=== PATIENT | male | born 1945 | race Caucasian/White ===

== ENCOUNTER 2019-11-24 08:19 | Emergency (ER) | payer OTHER ==
--- NOTE | 2019-11-24 08:32 | NUR ---
Patient decided to leave triage and not continue with care.
== END 2019-11-24 08:32 | disposition home or self-care (01) ==
LOC: SED 08:19
DX: M79.672 Pain in left foot (principal); M79.671 Pain in right foot; Z53.21 Procedure and treatment not carried out due to patient leaving prior to being seen by health care provider

== ENCOUNTER 2019-12-02 08:59 | Emergency (ER) | payer OTHER ==
[~2019-12-02] VITALS: Ht 167.6 cm; Wt 77.1 kg
[2019-12-02 09:03] VITALS: BP_SYST 135
--- NOTE | 2019-12-02 09:12 | NUR ---
Pt is taken to room 7, gown given.
--- NOTE | 2019-12-02 09:18 | NUR ---
Report given to Lisa.
--- NOTE | 2019-12-02 09:19 | NUR ---
Patient arrived in the ED c/o constipation that started a week ago. Patient stated he tried everything, laxatives, prune juice, fibers. Patient denied any chest pain or shortness of breath. Denied any fevers, chills, nausea, or vomiting. Patient is alert and oriented x4, respirations even and unlabored, speaking in full sentences, ambulating with a steady gait. VSS, pain level 5/10. Informed of approximate wait time. Instructed to notify ED staff for any changes in condition or worsening of symptoms. Patient verbalized understanding.
--- NOTE | 2019-12-02 09:20 | NUR ---
ER Dr. Wise at bedside examining patient.
[2019-12-02] MEDS ORDERED: NACL 0.9% 1,000 ML IV ONE (09:23)
[2019-12-02] MEDS ORDERED: ONDANSETRON HCL 4 MG/2 ML VIAL IVP ONE (09:30)
--- NOTE | 2019-12-02 09:32 | NUR ---
Patient ambulated to the bathroom with a steady gait. Urine specimen collected and dipped.
--- NOTE | 2019-12-02 09:36 | NUR ---
# 18 gauge angiocath placed to LAC. Use of asceptic technique. Opsite placed over site. Blood return noted. Blood for lab drawn from site. Flushed with 10 cc of normal saline. No evidence of infiltration noted. Patient tolerated well.
--- NOTE | 2019-12-02 09:36 | NUR ---
Administered Zofran IVP as ordered by Dr. Wise. Patient tolerated the medication well. See eMAR for details.
--- NOTE | 2019-12-02 09:45 | NUR ---
Patient is taken to X-ray, in stable condition.
--- NOTE | 2019-12-02 09:56 | NUR ---
Patient is back from X-ray, in stable condition.
[2019-12-02 10:01] LABS: BASOPHILS # (AUTO) 0.1 K/uL (0.0-0.2); BASOPHILS % (AUTO) 0.8 % (0.0-2.0); BILIRUBIN,URINE NEGATIVE (NEGATIVE); BLOOD, URINE NEGATIVE (NEGATIVE); CLARITY/URINE CLEAR (CLEAR); COLOR,URINE YELLOW (YELLOW); EOSINOPHILS # (AUTO) 0.1 K/uL (0.0-0.4); EOSINOPHILS % (AUTO) 1.5 % (0.0-4.0); GLUCOSE,URINE NEGATIVE (NEGATIVE); HEMOGLOBIN 16.6 g/dL (14.0-18.0); KETONES,URINE TRACE (NEGATIVE); LEUKOCYTE ESTERASE ,URINE NEGATIVE (NEGATIVE); LYMPHOCYTES # (AUTO) 1.7 K/uL (1.0-5.5); LYMPHOCYTES % (AUTO) 21.2 % (20.5-51.5); MEAN CORPUSCULAR HEMOGLOBIN 28 pg (27-31); MEAN CORPUSCULAR HGB CONC 33 % (32-36); MEAN CORPUSCULAR VOLUME 87 fL (79.0-98.0); MONOCYTES # (AUTO) 0.6 K/uL (0.0-1.0); MONOCYTES % (AUTO) 7.7 % (1.7-9.3); NEUTROPHILS # (AUTO) 5.4 K/uL (1.8-7.7); NEUTROPHILS % (AUTO) 68.8 % (40.0-70.0); NITRITE, URINE NEGATIVE (NEGATIVE); PH,URINE 6.5 (5.0-8.0); PLATELET COUNT (AUTO) 277 K/uL (130-430); PROTEIN URINE NEGATIVE (NEGATIVE); RED BLOOD CELL COUNT(AUTO) 5.89 MIL/uL (4.2-6.2); RED CELL DISTRIBUTION WIDTH 16.4 % (9.0-15.0); UROBILINOGEN,URINE 0.2 (0.2-1.0); WHITE BLOOD COUNT (AUTO) 7.9 K/uL (4.8-10.8)
[2019-12-02 10:15] LABS: ANION GAP 11 (5-15); CALCIUM 9.4 mg/dL (8.4-11.0); CHLORIDE 102 mmol/L (98-107); CREATININE 1.45 mg/dL (0.55-1.30); GLUCOSE 96 mg/dL (70-99); POTASSIUM 3.6 mmol/L (3.5-5.1); SODIUM SERUM 139 mmol/L (136-145); UREA NITROGEN, BLOOD 17 mg/dL (8-21)
[2019-12-02] MEDS ORDERED: SODIUM PHOSPHATE,MONO-DIBASIC 133 ML ENEMA RC ONE (10:15)
[2019-12-02 10:20] LABS: ALANINE AMINOTRANSFERASE 34 U/L (12-78); ALBUMIN 4.3 g/dL (3.4-4.8); ASPARTATE AMINOTRANSFERASE 28 U/L (10-37); LIPASE 175 U/L (73-393); TOTAL BILIRUBIN 0.6 mg/dL (0.0-1.0)
[2019-12-02] MEDS ORDERED: MAGNESIUM CITRATE 300 ML ORAL SOLUTION PO ONE (10:30)
--- NOTE | 2019-12-02 10:31 | NUR ---
Administered Eneme CA as ordered by Dr. Wise. Patient tolerated the medication well. See eMAR for details.
--- NOTE | 2019-12-02 10:37 | NUR ---
Administered Magcitrate PO as ordered by Dr. Wise. Patient tolerated the medication well. See eMAR for details.
--- NOTE | 2019-12-02 10:40 | NUR ---
Patient given written and verbal discharge instructions and verbalizes understanding. ER MD discussed with patient the results and treatment provided. Patient in stable condition. ID arm band removed. IV catheter removed intact and dressing applied, no active bleeding. Rx of Colace given. Patient educated on pain management and to follow up with PMD. Pain Scale 0/10. Opportunity for questions provided and answered. Medication side effect fact sheet provided.
[2019-12-02 10:45] VITALS: BP_SYST 138
== END 2019-12-02 10:45 | disposition home or self-care (01) ==
LOC: SED 08:59
DX: K59.00 Constipation, unspecified (principal); I10 Essential (primary) hypertension
CPT/HCPCS: 36415; 74021; 80053; 81003; 83690; 85025; 96374; 99284; J2405; J7030

== ENCOUNTER 2019-12-04 08:37 | Emergency (ER) | payer OTHER ==
[~2019-12-04] VITALS: Ht 167.6 cm; Wt 72.6 kg
[2019-12-04 08:44] VITALS: BP_SYST 150
--- NOTE | 2019-12-04 08:49 | NUR ---
PATIENT TO WAITING ROOM, STABLE; UNCHANGED
--- NOTE | 2019-12-04 08:57 | NUR ---
PATIENT TO ER #1
--- NOTE | 2019-12-04 09:10 | NUR ---
PT CAME TO ER FOR URINARY RETENTION AND INCONTINENCE. PT IN [facility], NO S/S OF DISTRESS AT THIS TIME, VSS.
--- NOTE | 2019-12-04 09:15 | NUR ---
ER at bedside examining patient.
[2019-12-04 10:30] VITALS: BP_SYST 150
--- NOTE | 2019-12-04 10:30 | NUR ---
Patient given written and verbal discharge instructions and verbalizes understanding. ER MD discussed with patient the results and treatment provided. Patient in stable condition. ID arm band removed. Rx of MAGNESIUM CITRATE given. Patient educated on pain management and to follow up with PMD. Pain Scale 0/10. Opportunity for questions provided and answered. Medication side effect fact sheet provided.
== END 2019-12-04 10:30 | disposition home or self-care (01) ==
LOC: SED 08:37
DX: R33.9 Retention of urine, unspecified (principal); I10 Essential (primary) hypertension
CPT/HCPCS: 74018; 81002; 99283

== ENCOUNTER 2019-12-24 04:44 | Inpatient (IN) | payer OTHER ==
[~2019-12-24] VITALS: Ht 165.1 cm; Wt 65.8 kg
[2019-12-24 04:44] VITALS: BP_SYST 116
[2019-12-24] MEDS ORDERED: NS 500 ML IV ONE (05:45)
[2019-12-24 06:15] LABS: BASOPHILS % (AUTO) 0.4 % (0.0-2.0); EOSINOPHILS % (AUTO) 0.3 % (0.0-4.0); HEMATOCRIT 40.1 % (36-54); HEMOGLOBIN 13.2 g/dL (14.0-18.0); LYMPHOCYTES # (AUTO) 0.7 K/uL (1.0-5.5); LYMPHOCYTES % (AUTO) 8.9 % (20.5-51.5); MEAN CORPUSCULAR HEMOGLOBIN 28 pg (27-31); MEAN CORPUSCULAR HGB CONC 33 % (32-36); MEAN CORPUSCULAR VOLUME 86 fL (79.0-98.0); MONOCYTES # (AUTO) 0.7 K/uL (0.0-1.0); MONOCYTES % (AUTO) 8.1 % (1.7-9.3); NEUTROPHILS # (AUTO) 6.9 K/uL (1.8-7.7); NEUTROPHILS % (AUTO) 82.3 % (40.0-70.0); PLATELET COUNT (AUTO) 195 K/uL (130-430); RED BLOOD CELL COUNT(AUTO) 4.65 MIL/uL (4.2-6.2); RED CELL DISTRIBUTION WIDTH 17.4 % (9.0-15.0); WHITE BLOOD COUNT (AUTO) 8.4 K/uL (4.8-10.8)
[2019-12-24 06:31] LABS: ANION GAP 12 (5-15); CALCIUM 8.6 mg/dL (8.4-11.0); CHLORIDE 106 mmol/L (98-107); CREATININE 3.71 mg/dL (0.55-1.30); GLUCOSE 108 mg/dL (70-99); POTASSIUM 4.6 mmol/L (3.5-5.1); SODIUM SERUM 140 mmol/L (136-145); UREA NITROGEN, BLOOD 97 mg/dL (8-21)
[2019-12-24 06:34] LABS: INR 1.1 (0.80-1.20)
[2019-12-24 06:37] LABS: ALANINE AMINOTRANSFERASE 46 U/L (12-78); ASPARTATE AMINOTRANSFERASE 32 U/L (10-37); TOTAL BILIRUBIN 0.4 mg/dL (0.0-1.0)
[2019-12-24] MEDS ORDERED: LISI10TA5 PO (09:49)
[2019-12-24] MEDS ORDERED: ACET-2165 PO (09:49)
[2019-12-24] MEDS ORDERED: TAMS-11 PO (09:49)
[2019-12-24] MEDS ORDERED: PREG75CA PO (09:49)
[2019-12-24] MEDS ORDERED: NS 250 ML IV ONE (10:00)
[2019-12-24 10:29] LABS: BILIRUBIN,URINE NEGATIVE (NEGATIVE); BLOOD, URINE NEGATIVE (NEGATIVE); CLARITY/URINE CLEAR (CLEAR); COLOR,URINE YELLOW (YELLOW); GLUCOSE,URINE NEGATIVE (NEGATIVE); KETONES,URINE NEGATIVE (NEGATIVE); LEUKOCYTE ESTERASE ,URINE NEGATIVE (NEGATIVE); NITRITE, URINE NEGATIVE (NEGATIVE); PROTEIN URINE NEGATIVE (NEGATIVE); UROBILINOGEN,URINE 0.2 (0.2-1.0)
[2019-12-24] MEDS: D5NS 1,000 ML IV SCH ×2 (10:42→18:19)
[2019-12-24 10:49] VITALS: BP_SYST 107
[2019-12-24 12:30] VITALS: BP_SYST 95
[2019-12-24 16:28] VITALS: BP_SYST 95
[2019-12-24 19:16] LABS: BILIRUBIN,URINE NEGATIVE (NEGATIVE); BLOOD, URINE NEGATIVE (NEGATIVE); CLARITY/URINE CLEAR (CLEAR); COLOR,URINE YELLOW (YELLOW); GLUCOSE,URINE NEGATIVE (NEGATIVE); KETONES,URINE NEGATIVE (NEGATIVE); LEUKOCYTE ESTERASE ,URINE NEGATIVE (NEGATIVE); NITRITE, URINE NEGATIVE (NEGATIVE); PROTEIN URINE NEGATIVE (NEGATIVE); UROBILINOGEN,URINE 0.2 (0.2-1.0)
[2019-12-24 19:30] VITALS: BP_SYST 99
[2019-12-25] MEDS: D5NS 1,000 ML IV SCH ×2 (01:23→09:52)
[2019-12-25 01:26] VITALS: BP_SYST 91
[2019-12-25 06:54] LABS: ALANINE AMINOTRANSFERASE 38 U/L (12-78); ALBUMIN 2.6 g/dL (3.4-4.8); ANION GAP 8 (5-15); ASPARTATE AMINOTRANSFERASE 30 U/L (10-37); BASOPHILS # (AUTO) 0.1 K/uL (0.0-0.2); BASOPHILS % (AUTO) 0.9 % (0.0-2.0); CALCIUM 8.1 mg/dL (8.4-11.0); CHLORIDE 106 mmol/L (98-107); CHOLESTEROL 118 mg/dL (<200); CREATININE 1.62 mg/dL (0.55-1.30); EOSINOPHILS # (AUTO) 0.2 K/uL (0.0-0.4); EOSINOPHILS % (AUTO) 2.9 % (0.0-4.0); GLUCOSE 118 mg/dL (70-99); HDL CHOLESTEROL 30 mg/dL (>45); HEMOGLOBIN 12.7 g/dL (14.0-18.0); LDL CHOLESTEROL 68 mg/dL (<100); LYMPHOCYTES # (AUTO) 1.5 K/uL (1.0-5.5); LYMPHOCYTES % (AUTO) 21.8 % (20.5-51.5); MEAN CORPUSCULAR HEMOGLOBIN 29 pg (27-31); MEAN CORPUSCULAR HGB CONC 33 % (32-36); MEAN CORPUSCULAR VOLUME 86 fL (79.0-98.0); MONOCYTES # (AUTO) 0.8 K/uL (0.0-1.0); MONOCYTES % (AUTO) 10.7 % (1.7-9.3); NEUTROPHILS # (AUTO) 4.5 K/uL (1.8-7.7); NEUTROPHILS % (AUTO) 63.7 % (40.0-70.0); PLATELET COUNT (AUTO) 181 K/uL (130-430); POTASSIUM 4.4 mmol/L (3.5-5.1); RED BLOOD CELL COUNT(AUTO) 4.42 MIL/uL (4.2-6.2); RED CELL DISTRIBUTION WIDTH 17.1 % (9.0-15.0); SODIUM SERUM 135 mmol/L (136-145); THYROID STIMULATING HORMONE 0.54 uIu/mL (0.34-4.82); TOTAL BILIRUBIN 0.3 mg/dL (0.0-1.0); TRIGLYCERIDES 99 mg/dL (30-150); UREA NITROGEN, BLOOD 50 mg/dL (8-21)
[2019-12-25] MEDS ORDERED: HALOPERIDOL LACTATE 5 MG/ML VIAL IVP ONE (09:15)
[2019-12-25 10:25] VITALS: BP_SYST 122
[2019-12-25 12:30] VITALS: BP_SYST 133
[2019-12-25 17:00] VITALS: BP_SYST 149
[2019-12-25 20:00] VITALS: BP_SYST 144
[2019-12-26 00:12] VITALS: BP_SYST 123
[2019-12-26] MEDS: D5NS 1,000 ML IV SCH ×2 (00:40→16:35)
[2019-12-26 08:01] LABS: ALANINE AMINOTRANSFERASE 38 U/L (12-78); ALBUMIN 2.8 g/dL (3.4-4.8); ANION GAP 12 (5-15); ASPARTATE AMINOTRANSFERASE 34 U/L (10-37); CALCIUM 8.4 mg/dL (8.4-11.0); CHLORIDE 109 mmol/L (98-107); CREATININE 1.39 mg/dL (0.55-1.30); GLUCOSE 78 mg/dL (70-99); POTASSIUM 4.3 mmol/L (3.5-5.1); SODIUM SERUM 142 mmol/L (136-145); TOTAL BILIRUBIN 0.6 mg/dL (0.0-1.0); UREA NITROGEN, BLOOD 24 mg/dL (8-21)
[2019-12-26 08:03] VITALS: BP_SYST 111
[2019-12-26 08:13] LABS: BASOPHILS # (AUTO) 0.1 K/uL (0.0-0.2); BASOPHILS % (AUTO) 0.8 % (0.0-2.0); EOSINOPHILS # (AUTO) 0.1 K/uL (0.0-0.4); EOSINOPHILS % (AUTO) 1.2 % (0.0-4.0); HEMATOCRIT 40.5 % (36-54); HEMOGLOBIN 13.6 g/dL (14.0-18.0); LYMPHOCYTES # (AUTO) 1.4 K/uL (1.0-5.5); LYMPHOCYTES % (AUTO) 17.4 % (20.5-51.5); MEAN CORPUSCULAR HEMOGLOBIN 29 pg (27-31); MEAN CORPUSCULAR HGB CONC 34 % (32-36); MEAN CORPUSCULAR VOLUME 86 fL (79.0-98.0); MONOCYTES # (AUTO) 0.9 K/uL (0.0-1.0); MONOCYTES % (AUTO) 11.5 % (1.7-9.3); NEUTROPHILS # (AUTO) 5.5 K/uL (1.8-7.7); NEUTROPHILS % (AUTO) 69.1 % (40.0-70.0); PLATELET COUNT (AUTO) 191 K/uL (130-430); RED BLOOD CELL COUNT(AUTO) 4.71 MIL/uL (4.2-6.2); RED CELL DISTRIBUTION WIDTH 17.1 % (9.0-15.0)
[2019-12-26 12:45] VITALS: BP_SYST 95
[2019-12-26 16:18] VITALS: BP_SYST 110
[2019-12-27 00:10] VITALS: BP_SYST 115
[2019-12-27] MEDS: D5NS 1,000 ML IV SCH ×2 (04:36→19:55)
[2019-12-27 08:26] VITALS: BP_SYST 121
[2019-12-27 12:27] VITALS: BP_SYST 145
[2019-12-27 16:23] VITALS: BP_SYST 156
[2019-12-27 20:00] VITALS: BP_SYST 148
[2019-12-28] VITALS (7 sets, daily range): BP systolic 114–152
[2019-12-28 07:14] LABS: ANION GAP 8 (5-15); CALCIUM 7.4 mg/dL (8.4-11.0); CHLORIDE 109 mmol/L (98-107); CREATININE 1.24 mg/dL (0.55-1.30); GLUCOSE 104 mg/dL (70-99); POTASSIUM 3.7 mmol/L (3.5-5.1); SODIUM SERUM 142 mmol/L (136-145); UREA NITROGEN, BLOOD 11 mg/dL (8-21)
[2019-12-29] VITALS: BP_SYST 127
[2019-12-29 08:05] VITALS: BP_SYST 142
[2019-12-29 08:10] VITALS: BP_SYST 142
[2019-12-29 09:52] VITALS: BP_SYST 142
== END 2019-12-29 10:30 | DRG 682 ==
LOC: SED 04:44 → STU 08:26 → SMU 12-25 19:23
PROVIDERS: ADMIT Internal Medicine Hospice and Palliative Medicine; ATTEND Internal Medicine Hospice and Palliative Medicine
DX: N17.9 Acute kidney failure, unspecified (principal); G93.41 Metabolic encephalopathy; N13.8 Other obstructive and reflux uropathy; N40.1 Benign prostatic hyperplasia with lower urinary tract symptoms; D64.9 Anemia, unspecified; N18.9 Chronic kidney disease, unspecified; F03.90 Unspecified dementia, unspecified severity, without behavioral disturbance, psychotic disturbance, mood disturbance, and anxiety; I12.9 Hypertensive chronic kidney disease with stage 1 through stage 4 chronic kidney disease, or unspecified chronic kidney disease; I45.9 Conduction disorder, unspecified; I51.7 Cardiomegaly; Z87.891 Personal history of nicotine dependence; I25.2 Old myocardial infarction; Z79.899 Other long term (current) drug therapy; Z88.0 Allergy status to penicillin
CPT/HCPCS: 36415; 70450-TC; 71045; 73060-TC; 76770; 80048; 80053; 80061; 81003; 83735-TC; 83880; 84443-TC; 84484; 85025; 85610-TC; 85730-TC; 93005; 93306; 97110-GP; 97116-GP; 99285; G0378; J1630; J7040; J7042; J7050

== ENCOUNTER 2020-01-14 20:39 | Inpatient (IN) | payer BC, OTHER ==
[~2020-01-14] VITALS: Ht 182.9 cm; Wt 65.1 kg
[~2020-01-14 20:39] MED LIST: ACET-2165 PO; TAMS-11 PO
[2020-01-14 20:43] VITALS: BP_SYST 70
[2020-01-14] MEDS ORDERED: NACL 0.9% 1,000 ML IV ONE (20:59)
[2020-01-14] MEDS ORDERED: NS 500 ML IV ONE ×2 (21:00→23:45)
[2020-01-14 21:25] LABS: BASOPHILS # (AUTO) 0.1 K/uL (0.0-0.2); BASOPHILS % (AUTO) 0.3 % (0.0-2.0); HEMOGLOBIN 16.3 g/dL (14.0-18.0); LYMPHOCYTES # (AUTO) 1.1 K/uL (1.0-5.5); LYMPHOCYTES % (AUTO) 6.9 % (20.5-51.5); MEAN CORPUSCULAR HEMOGLOBIN 29 pg (27-31); MEAN CORPUSCULAR HGB CONC 33 % (32-36); MEAN CORPUSCULAR VOLUME 89 fL (79.0-98.0); MONOCYTES # (AUTO) 1.1 K/uL (0.0-1.0); NEUTROPHILS # (AUTO) 13.4 K/uL (1.8-7.7); NEUTROPHILS % (AUTO) 85.8 % (40.0-70.0); PLATELET COUNT (AUTO) 323 K/uL (130-430); RED BLOOD CELL COUNT(AUTO) 5.65 MIL/uL (4.2-6.2); RED CELL DISTRIBUTION WIDTH 18.2 % (9.0-15.0); WHITE BLOOD COUNT (AUTO) 15.6 K/uL (4.8-10.8)
[2020-01-14 21:33] LABS: ANION GAP 13 (5-15); CHLORIDE 104 mmol/L (98-107); CREATININE 3.55 mg/dL (0.55-1.30); GLUCOSE 134 mg/dL (70-99); POTASSIUM 4.7 mmol/L (3.5-5.1); SODIUM SERUM 142 mmol/L (136-145); UREA NITROGEN, BLOOD 47 mg/dL (8-21)
[2020-01-14 21:45] LABS: ALANINE AMINOTRANSFERASE 42 U/L (12-78); ALBUMIN 3.5 g/dL (3.4-4.8); ASPARTATE AMINOTRANSFERASE 28 U/L (10-37); TOTAL BILIRUBIN 0.5 mg/dL (0.0-1.0)
[2020-01-14] MEDS: NOREPINEPHRINE BITARTRATE 4 MG in NS 246 ML IV ONE ×2 (22:01→22:26)
[2020-01-14] MEDS ORDERED: NOREPINEPHRINE 4 MG/4 ML VIAL IV ONE (22:01)
[2020-01-14 22:47] LABS: BILIRUBIN,URINE 1+ (NEGATIVE); CLARITY/URINE CLEAR (CLEAR); COLOR,URINE YELLOW (YELLOW); GLUCOSE,URINE NEGATIVE (NEGATIVE); KETONES,URINE TRACE (NEGATIVE); LEUKOCYTE ESTERASE ,URINE TRACE (NEGATIVE); NITRITE, URINE NEGATIVE (NEGATIVE); PH,URINE 5.5 (5.0-8.0); PROTEIN URINE NEGATIVE (NEGATIVE); UROBILINOGEN,URINE 0.2 (0.2-1.0)
[2020-01-14 22:49] LABS: BLOOD, URINE TRACE (NEGATIVE)
[2020-01-14 22:52] LABS: BACTERIA,URINE FEW /HPF (None Seen)
[2020-01-14 23:26] LABS: INR 1.2 (0.80-1.20); PROTHROMBIN TIME 11.8 SECS (9.5-12.5)
[2020-01-15] VITALS (23 sets, daily range): BP systolic 89–133
[2020-01-15] MEDS ORDERED: NOREPINEPHRINE BITARTRATE 4 MG in NS 246 ML IV ONE ×2
[2020-01-15] MEDS ORDERED: ACETAMINOPHEN 650 MG/20.3 ML UDC PO PRN
[2020-01-15] MEDS ORDERED: LEVOFLOXACIN 500 MG/D5W 100 ML IV ONE ×2 (00:15→00:34)
[2020-01-15] MEDS: NACL 0.9% 1,000 ML IV SCH ×3 (00:33→21:26)
[2020-01-15] MEDS ORDERED: NS 500 ML IV ONE (01:00)
[2020-01-15] MEDS ORDERED: PREG75CA PO (01:14)
[2020-01-15] MEDS ORDERED: LISI10TA5 PO (01:14)
[2020-01-15 05:29] LABS: BASOPHILS # (AUTO) 0.1 K/uL (0.0-0.2); BASOPHILS % (AUTO) 0.4 % (0.0-2.0); EOSINOPHILS % (AUTO) 0.1 % (0.0-4.0); HEMOGLOBIN 14.6 g/dL (14.0-18.0); LYMPHOCYTES % (AUTO) 11.6 % (20.5-51.5); MEAN CORPUSCULAR HEMOGLOBIN 29 pg (27-31); MEAN CORPUSCULAR HGB CONC 32 % (32-36); MEAN CORPUSCULAR VOLUME 89 fL (79.0-98.0); MONOCYTES # (AUTO) 1.3 K/uL (0.0-1.0); MONOCYTES % (AUTO) 7.7 % (1.7-9.3); NEUTROPHILS # (AUTO) 13.9 K/uL (1.8-7.7); NEUTROPHILS % (AUTO) 80.2 % (40.0-70.0); PLATELET COUNT (AUTO) 267 K/uL (130-430); RED BLOOD CELL COUNT(AUTO) 5.04 MIL/uL (4.2-6.2); RED CELL DISTRIBUTION WIDTH 18.1 % (9.0-15.0); WHITE BLOOD COUNT (AUTO) 17.3 K/uL (4.8-10.8)
[2020-01-15 07:42] LABS: ALANINE AMINOTRANSFERASE 44 U/L (12-78); ANION GAP 11 (5-15); ASPARTATE AMINOTRANSFERASE 31 U/L (10-37); CALCIUM 8.3 mg/dL (8.4-11.0); CHLORIDE 108 mmol/L (98-107); GLUCOSE 92 mg/dL (70-99); POTASSIUM 4.4 mmol/L (3.5-5.1); SODIUM SERUM 143 mmol/L (136-145); THYROID STIMULATING HORMONE 1.02 uIu/mL (0.34-4.82); TOTAL BILIRUBIN 0.5 mg/dL (0.0-1.0); UREA NITROGEN, BLOOD 46 mg/dL (8-21)
[2020-01-15] MEDS: MIDODRINE HCL 5 MG TABLET (PROAMATINE) PO SCH ×2 (12:00→18:39)
[2020-01-16] VITALS (20 sets, daily range): BP systolic 95–147
[2020-01-16] MEDS: NACL 0.9% 1,000 ML IV SCH (04:38)
[2020-01-16 05:36] LABS: BASOPHILS # (AUTO) 0.1 K/uL (0.0-0.2); BASOPHILS % (AUTO) 0.8 % (0.0-2.0); EOSINOPHILS # (AUTO) 0.1 K/uL (0.0-0.4); EOSINOPHILS % (AUTO) 0.8 % (0.0-4.0); HEMATOCRIT 36.8 % (36-54); HEMOGLOBIN 11.9 g/dL (14.0-18.0); LYMPHOCYTES # (AUTO) 1.4 K/uL (1.0-5.5); LYMPHOCYTES % (AUTO) 17.3 % (20.5-51.5); MEAN CORPUSCULAR HEMOGLOBIN 29 pg (27-31); MEAN CORPUSCULAR HGB CONC 32 % (32-36); MEAN CORPUSCULAR VOLUME 89 fL (79.0-98.0); MONOCYTES # (AUTO) 0.6 K/uL (0.0-1.0); MONOCYTES % (AUTO) 7.5 % (1.7-9.3); NEUTROPHILS # (AUTO) 6.2 K/uL (1.8-7.7); NEUTROPHILS % (AUTO) 73.6 % (40.0-70.0); PLATELET COUNT (AUTO) 197 K/uL (130-430); RED BLOOD CELL COUNT(AUTO) 4.12 MIL/uL (4.2-6.2); RED CELL DISTRIBUTION WIDTH 17.8 % (9.0-15.0); WHITE BLOOD COUNT (AUTO) 8.4 K/uL (4.8-10.8)
[2020-01-16 06:03] LABS: ALANINE AMINOTRANSFERASE 29 U/L (12-78); ALBUMIN 1.7 g/dL (3.4-4.8); ANION GAP 9 (5-15); ASPARTATE AMINOTRANSFERASE 23 U/L (10-37); CHLORIDE 119 mmol/L (98-107); CREATININE 0.91 mg/dL (0.55-1.30); SODIUM SERUM 147 mmol/L (136-145); THYROID STIMULATING HORMONE 0.25 uIu/mL (0.36-3.74); TOTAL BILIRUBIN 0.3 mg/dL (0.0-1.0); UREA NITROGEN, BLOOD 20 mg/dL (8-21)
[2020-01-16 06:12] LABS: POTASSIUM 2.7 mmol/L (3.5-5.1)
[2020-01-16 06:13] LABS: GLUCOSE 39 mg/dL (70-99)
[2020-01-16 06:14] LABS: CALCIUM 5.6 mg/dL (8.4-11.0)
[2020-01-16] MEDS ORDERED: DEXTROSE 50% JECT 50 ML DISP.SYRIN ONE (06:32)
[2020-01-16] MEDS ORDERED: MIDODRINE HCL 5 MG TABLET (PROAMATINE) PO SCH (07:00)
[2020-01-16] MEDS ORDERED: KCL 20 mEq in D5NS 1000 mL 1,000 ML IV SCH (07:30)
[2020-01-16] MEDS ORDERED: POTASSIUM CHLORIDE 40 MEQ, LIDOCAINE JECT 2% PF 100 MG 50 MG in NS 250 ML IV ONE (07:30)
[2020-01-16] MEDS ORDERED: methylPREDNISolone SOD SUCC 40 MG/ML VIAL IVP ONE (08:30)
[2020-01-16 09:29] LABS: PHOSPHORUS 1.8 mg/dL (2.7-4.5)
[2020-01-16 10:36] LABS: FREE T4 (FREE THYROXINE) 1.5 ng/dL (0.6-1.6)
[2020-01-16] MEDS: POTASSIUM CHLORIDE 10 MEQ in D5NS 1,000 ML IV SCH ×2 (10:47→20:38)
[2020-01-16] MEDS ORDERED: DEXTROSE 50% JECT 50 ML DISP.SYRIN IVP ONE (12:00)
[2020-01-16] MEDS ORDERED: CALCIUM GLUCONATE 2 GM in NS 100 ML IV ONE (12:00)
[2020-01-16] MEDS ORDERED: INSULIN LISPRO SLIDING SCALE 100 UNITS/ML VIAL (humaLOG) SUBCUT PRN (16:00)
[2020-01-16] MEDS: LEVOFLOXACIN 500 MG/D5W 100 ML IV SCH (17:05)
[2020-01-16 17:10] LABS: ANION GAP 7 (5-15); CALCIUM 8.5 mg/dL (8.4-11.0); CHLORIDE 109 mmol/L (98-107); CREATININE 1.16 mg/dL (0.55-1.30); GLUCOSE 144 mg/dL (70-99); POTASSIUM 4.7 mmol/L (3.5-5.1); SODIUM SERUM 141 mmol/L (136-145); UREA NITROGEN, BLOOD 20 mg/dL (8-21)
[2020-01-16] MEDS ORDERED: K PHOS 30 MM in NS 250 ML IV ONE (20:00)
[2020-01-16] MEDS: MILK OF MAGNESIA 30 ML UDC PO ONE ×2 (21:00→23:47)
[2020-01-17] MEDS: POTASSIUM CHLORIDE 10 MEQ in D5NS 1,000 ML IV SCH ×3 (05:40→18:13)
[2020-01-17 06:29] LABS: BASOPHILS % (AUTO) 0.5 % (0.0-2.0); EOSINOPHILS # (AUTO) 0.1 K/uL (0.0-0.4); EOSINOPHILS % (AUTO) 0.6 % (0.0-4.0); HEMATOCRIT 43.1 % (36-54); HEMOGLOBIN 14.1 g/dL (14.0-18.0); LYMPHOCYTES # (AUTO) 1.7 K/uL (1.0-5.5); LYMPHOCYTES % (AUTO) 15.9 % (20.5-51.5); MEAN CORPUSCULAR HEMOGLOBIN 29 pg (27-31); MEAN CORPUSCULAR HGB CONC 33 % (32-36); MEAN CORPUSCULAR VOLUME 88 fL (79.0-98.0); MONOCYTES # (AUTO) 0.6 K/uL (0.0-1.0); MONOCYTES % (AUTO) 6.1 % (1.7-9.3); NEUTROPHILS % (AUTO) 76.9 % (40.0-70.0); PLATELET COUNT (AUTO) 208 K/uL (130-430); RED BLOOD CELL COUNT(AUTO) 4.88 MIL/uL (4.2-6.2); RED CELL DISTRIBUTION WIDTH 17.6 % (9.0-15.0); WHITE BLOOD COUNT (AUTO) 10.5 K/uL (4.8-10.8)
[2020-01-17 06:50] LABS: ALANINE AMINOTRANSFERASE 41 U/L (12-78); ALBUMIN 2.5 g/dL (3.4-4.8); ANION GAP 8 (5-15); ASPARTATE AMINOTRANSFERASE 26 U/L (10-37); CHLORIDE 109 mmol/L (98-107); GLUCOSE 87 mg/dL (70-99); PHOSPHORUS 3.5 mg/dL (2.7-4.5); POTASSIUM 3.9 mmol/L (3.5-5.1); SODIUM SERUM 142 mmol/L (136-145); TOTAL BILIRUBIN 0.4 mg/dL (0.0-1.0); UREA NITROGEN, BLOOD 15 mg/dL (8-21)
[2020-01-17 08:08] LABS: FOLATE (FOLIC ACID) 5.4 ng/mL (>3.0)
[2020-01-17 09:52] VITALS: BP_SYST 145
[2020-01-17] MEDS ORDERED: FOLIC ACID 1 MG TABLET PO ONE (10:00)
[2020-01-17] MEDS ORDERED: CYANOCOBALAMIN 1000 mCg TABLET PO ONE (10:00)
[2020-01-17 12:20] VITALS: BP_SYST 107
[2020-01-17 16:28] VITALS: BP_SYST 138
[2020-01-17] MEDS: LEVOFLOXACIN 500 MG/D5W 100 ML IV SCH (16:37)
[2020-01-17 20:00] VITALS: BP_SYST 122
[2020-01-17] MEDS: DOCUSATE SODIUM 250 MG CAPSULE PO SCH (20:56)
[2020-01-18 01:26] VITALS: BP_SYST 130
[2020-01-18] MEDS: POTASSIUM CHLORIDE 10 MEQ in D5NS 1,000 ML IV SCH ×3 (02:25→18:19)
[2020-01-18] MEDS: DOCUSATE SODIUM 250 MG CAPSULE PO SCH ×2 (08:28→21:00)
[2020-01-18] MEDS: FOLIC ACID 1 MG TABLET PO SCH (08:28)
[2020-01-18] MEDS: CYANOCOBALAMIN 1000 mCg TABLET PO SCH (08:28)
[2020-01-18 09:02] LABS: BASOPHILS % (AUTO) 0.5 % (0.0-2.0); EOSINOPHILS # (AUTO) 0.1 K/uL (0.0-0.4); EOSINOPHILS % (AUTO) 1.4 % (0.0-4.0); HEMATOCRIT 43.6 % (36-54); HEMOGLOBIN 14.5 g/dL (14.0-18.0); LYMPHOCYTES # (AUTO) 1.8 K/uL (1.0-5.5); LYMPHOCYTES % (AUTO) 18.7 % (20.5-51.5); MEAN CORPUSCULAR HEMOGLOBIN 29 pg (27-31); MEAN CORPUSCULAR HGB CONC 33 % (32-36); MEAN CORPUSCULAR VOLUME 87 fL (79.0-98.0); MONOCYTES # (AUTO) 0.7 K/uL (0.0-1.0); MONOCYTES % (AUTO) 7.8 % (1.7-9.3); NEUTROPHILS # (AUTO) 6.8 K/uL (1.8-7.7); NEUTROPHILS % (AUTO) 71.6 % (40.0-70.0); PLATELET COUNT (AUTO) 207 K/uL (130-430); RED BLOOD CELL COUNT(AUTO) 5.01 MIL/uL (4.2-6.2); RED CELL DISTRIBUTION WIDTH 17.5 % (9.0-15.0); WHITE BLOOD COUNT (AUTO) 9.5 K/uL (4.8-10.8)
[2020-01-18 09:03] VITALS: BP_SYST 107
[2020-01-18 12:03] LABS: ANION GAP 8 (5-15); CALCIUM 7.9 mg/dL (8.4-11.0); CHLORIDE 104 mmol/L (98-107); CREATININE 1.23 mg/dL (0.55-1.30); GLUCOSE 105 mg/dL (70-99); POTASSIUM 3.9 mmol/L (3.5-5.1); UREA NITROGEN, BLOOD 10 mg/dL (8-21)
[2020-01-18 12:05] LABS: SODIUM SERUM 135 mmol/L (136-145)
[2020-01-18] MEDS ORDERED: MEGESTROL ACETATE 400 MG/10 ML UDC PO ONE (12:15)
[2020-01-18 12:34] VITALS: BP_SYST 120
[2020-01-18 16:39] VITALS: BP_SYST 132
[2020-01-18] MEDS: LEVOFLOXACIN 500 MG/D5W 100 ML IV SCH (18:19)
[2020-01-18 19:00] VITALS: BP_SYST 128
[2020-01-18 20:00] VITALS: BP_SYST 128
[2020-01-18] MEDS: CALCIUM CARBONATE 500 MG/ TAB.CHEW PO SCH (21:00)
[2020-01-18] MEDS: MEGESTROL ACETATE 400 MG/10 ML UDC PO SCH (21:00)
[2020-01-19 00:03] VITALS: BP_SYST 128
[2020-01-19] MEDS: POTASSIUM CHLORIDE 10 MEQ in D5NS 1,000 ML IV SCH ×2 (02:50→05:23)
[2020-01-19 08:00] VITALS: BP_SYST 136
[2020-01-19] MEDS ORDERED: CHOLECALCIFEROL (VITAMIN D3) 2,000 UNIT TABLET PO SCH (09:00)
[2020-01-19] MEDS: MEGESTROL ACETATE 400 MG/10 ML UDC PO SCH (10:04)
[2020-01-19] MEDS: DOCUSATE SODIUM 250 MG CAPSULE PO SCH (10:06)
[2020-01-19] MEDS: CYANOCOBALAMIN 1000 mCg TABLET PO SCH (10:06)
[2020-01-19] MEDS: CALCIUM CARBONATE 500 MG/ TAB.CHEW PO SCH ×2 (10:06→14:35)
[2020-01-19] MEDS: FOLIC ACID 1 MG TABLET PO SCH (10:06)
[2020-01-19 12:00] VITALS: BP_SYST 133; BP_SYST 95
[2020-01-19 16:25] VITALS: BP_SYST 138
[2020-01-19 16:39] VITALS: BP_SYST 116
== END 2020-01-19 17:15 | DRG 314 ==
LOC: SED 20:39 → SIC 01-15 00:15 → STU 01-16 18:29
PROVIDERS: ADMIT Internal Medicine; ATTEND Internal Medicine
DX: I95.9 Hypotension, unspecified (principal); N17.0 Acute kidney failure with tubular necrosis; G93.41 Metabolic encephalopathy; E43 Unspecified severe protein-calorie malnutrition; N39.0 Urinary tract infection, site not specified; E87.1 Hypo-osmolality and hyponatremia; Z68.1 Body mass index [BMI] 19.9 or less, adult; F03.90 Unspecified dementia, unspecified severity, without behavioral disturbance, psychotic disturbance, mood disturbance, and anxiety; N40.0 Benign prostatic hyperplasia without lower urinary tract symptoms; I10 Essential (primary) hypertension; R00.1 Bradycardia, unspecified; F29 Unspecified psychosis not due to a substance or known physiological condition; R55 Syncope and collapse; E87.6 Hypokalemia; E83.39 Other disorders of phosphorus metabolism; B96.89 Other specified bacterial agents as the cause of diseases classified elsewhere; E86.0 Dehydration; F31.9 Bipolar disorder, unspecified; E11.649 Type 2 diabetes mellitus with hypoglycemia without coma; G89.29 Other chronic pain; M54.5 Low back pain; Z79.4 Long term (current) use of insulin; Z88.0 Allergy status to penicillin
CPT/HCPCS: 36415; 71045; 74018; 76770; 80048; 80053; 81000-TC; 82306; 82533; 82607; 82746; 82962; 83605; 83735-TC; 83880; 84100-TC; 84439; 84443-TC; 84484; 85025; 85610-TC; 85730-TC; 87040-TC; 87081; 87086; 87186-TC; 92610-GN; 93005; 96361; 96365; 97112-GP; 97116-GP; 97530-GP; 99285; G0378; J0610; J1030; J1956; J3480; J7030; J7042; J7050